=== PATIENT | female | born 1965 ===

== ENCOUNTER 2017-10-29 19:49 | Emergency (ER) | payer OTHER, BC ==
--- NOTE | 2017-10-29 21:42 | C.PDOC ---
History Of Present Illness Pt injured her right arm 5 days ago. She developed bruising. She was seen at an Urgent Care that ran a D-Dimer which apparently came back positive. Time Seen by Provider: 10/29/17 21:02 Chief Complaint (Nursing): Upper Extremity Problem/Injury History Per: Patient Onset/Duration Of Symptoms: Days (5) Current Symptoms Are (Timing): Still Present Quality: "Pain" Severity: Moderate Exacerbating Factor(s): Strenuous Use Of Affected Area Additional History Per: Prior Records Past Medical History Reviewed: Historical Data, Nursing Documentation, Vital Signs Vital Signs: Last Vital Signs Temp 98.4 F 10/29/17 19:56 Pulse 104 H 10/29/17 19:56 Resp 16 10/29/17 19:56 BP 153/93 H 10/29/17 19:56 Pulse Ox 98 10/29/17 19:56 - Medical History PMH: Anemia, Anxiety, Depression, Hypothyroidism Surgical History: Tonsillectomy Family History: States: Unknown Family Hx - Social History Hx Alcohol Use: No Hx Substance Use: No Review Of Systems Except As Marked, All Systems Reviewed And Found Negative. Constitutional: Negative for: Fever Cardiovascular: Negative for: Chest Pain Respiratory: Negative for: Shortness of Breath Gastrointestinal: Negative for: Vomiting, Abdominal Pain Musculoskeletal: Positive for: Arm Pain (right). Negative for: Neck Pain Neurological: Negative for: Weakness, Numbness Physical Exam - Physical Exam Appears: Non-toxic, No Acute Distress Skin: Warm, Dry, Ecchymosis (right arm) Head: Atraumatic, Normacephalic Eye(s): bilateral: Normal Inspection, PERRL, EOMI Neck: Normal ROM, Supple Chest: Symmetrical, No Deformity, No Tenderness, No Ecchymosis, No Subcutaneous Emphysema Cardiovascular: Rhythm Regular Respiratory: Normal Breath Sounds, No Accessory Muscle Use Gastrointestinal/Abdominal: Soft, No Tenderness Extremity: Normal ROM, Capillary Refill (wnl), Swelling (right arm) Pulses: Right Radial: Normal Neurological/Psych: Oriented x3, Normal Motor, Normal Sensation ED Course And Treatment O2 Sat by Pulse Oximetry: 98 Pulse Ox Interpretation: Normal Progress Note: an duplex US is not available at this time to r/o DVT. Pt was placed in a sling and instructed to return in the AM for the study. Disposition Counseled Patient/Family Regarding: Diagnosis, Need For Followup - Disposition Disposition: HOME/ ROUTINE Disposition Time: 21:42 Condition: STABLE Additional Instructions: Return to the ER in the morning for an ultrasound to rule out a blood clot in your right arm. Forms: General Discharge Instructions - Clinical Impression Clinical Impression: Injury of right upper arm
[2017-10-29 21:48] VITALS: BP 130/90; PULSE 90; RESP 14; TEMP 98.6; O2SAT 95
== END 2017-10-29 21:59 | disposition home or self-care (01) ==
LOC: C.ER 19:49
DX: S49.91XA Unspecified injury of right shoulder and upper arm, initial encounter (principal); X58.XXXA Exposure to other specified factors, initial encounter; Y92.9 Unspecified place or not applicable